=== PATIENT | male | born 1950 | race African-American/Black ===

== ENCOUNTER 2016-11-24 15:36 | Emergency (ER) | payer MEDICARE, MEDICAID ==
[~2016-11-24] VITALS: Ht 190.5 cm; Wt 124.7 kg
[~2016-11-24 15:36] MED LIST: ACETAMINOPHEN-1 EAC2 ORAL; ADULT WAL-100 MG/5 M ORAL; ALBUTEROL SULF8.5 GM INH; AMOXICILLIN500 MG ORAL; AZITHROMYCIN250 MG ORAL; COLACE100 MG ORAL; COSOPT1 DRO2 BOTH EYES; FLOMAX0.4 MG ORAL; FUROSEMIDE40 MG ORAL; HYDROCODON-ACE1 EA17 PO; METHADONE HCL10 MG PO; NKM; NORCO 5-325 TA1 EACH ORAL; NORVASC10 MG ORAL; POTASSIUM 25 M25 ME1 PO; SOMA350 MG PO; UNOBMED; ZITHROMAX250 MG ORAL
[2016-11-24] MEDS ORDERED: Famotidine 20 MG/ 2ML VIAL IVP ONE (16:00)
[2016-11-24 16:15] VITALS: BP 143/84
[2016-11-24] MEDS ORDERED: Dicyclomine HCl 10mg/5ml oral soln ORAL ONE (16:45)
[2016-11-24] MEDS ORDERED: Mylanta II UD 30ml ORAL ONE (16:45)
[2016-11-24] MEDS ORDERED: Lidocaine 2% Visc 15ml soln ORAL ONE (16:45)
[2016-11-24 16:49] LABS: MEAN CORPUSCULAR HEMOGLOBIN 30.7 PG (27.0-31.0); MEAN CORPUSCULAR HGB CONC 34.1 G/DL (32.0-36.0); MEAN CORPUSCULAR VOLUME 90 FL (80-99); MEAN PLATELET VOLUME 6.6 FL (6.5-10.1); PLATELET COUNT 169 K/UL (150-450); RED BLOOD COUNT 4.94 M/UL (4.70-6.10); RED CELL DISTRIBUTION WIDTH 11.5 % (11.6-14.8); WHITE BLOOD COUNT 10.8 K/UL (4.8-10.8)
[2016-11-24 17:00] VITALS: BP 148/80
[2016-11-24 17:00] LABS: ALANINE AMINOTRANSFERASE 21 U/L (3-41); ANION GAP 16 (5-15); ASPARTATE AMINO TRANSFERASE 28 U/L (5-40); CALCIUM 9.6 mg/dL (8.6-10.2); CARBON DIOXIDE 28 mEQ/L (20-30); CHLORIDE 97 mEQ/L (98-107); GLOMERULAR FILTRATION RATE > 60 mL/min (>60); HEMOLYSIS 4; LIPASE 20 U/L (< 60); POTASSIUM 3.7 mEQ/L (3.4-4.9); SODIUM 141 mEQ/L (135-145); TOTAL PROTEIN 7.7 g/dL (6.6-8.7); TROPONIN I < 0.30 ng/mL (<=0.30)
[2016-11-24 17:11] LABS: CKMB < 1.5 ng/mL (< 6.7)
[2016-11-24] MEDS ORDERED: PEPCID40 MG PO (17:12)
[2016-11-24] MEDS ORDERED: ZOFRAN4 M3 ORAL (17:12)
[2016-11-24 17:25] VITALS: BP 148/80
[2016-11-24 19:48] LABS: BAND NEUTROPHILS % (MANUAL) 4 % (0-8); BASOPHILS % (MANUAL) 0 % (0-2); EOSINOPHILS % (MANUAL) 2 % (0-3); LYMPHOCYTES % (MANUAL) 7 % (20-45); NEUTROPHILS % (MANUAL) 85 % (45-75); PLATELET ESTIMATE ADEQUATE; PLATELET MORPHOLOGY NORMAL; TOTAL CELLS COUNTED 100
--- NOTE | 2016-11-24 21:26 | Emergency Room Report ---
History of Present Illness General Chief Complaint: Chest Pain Source: Patient (ELY LUIS) Present Illness HPI The patient is a 66-year-old male with history of hypertension presenting for abdominal pain, nausea, vomiting, and diarrhea. The patient states that he works in a small office where multiple coworkers have had similar symptoms within the past week. The patient states that he developed all these symptoms this morning. Pain is described as a 7/10 sharp sensation to the mid upper abdomen and radiates to the mid chest. No known provoking relieving factors. Patient denies any other symptoms including Fever, chills, CP, SOB, palpitations , diaphoresis, numbness/tingling (ELY LUIS) Allergies: Coded Allergies: IBUPROFEN (Verified Allergy, Mild, Hives, 02/20/13) KETOROLAC TROMETHAMINE (Verified Allergy, Mild, 02/20/13) TETRACYCLINE (Verified Allergy, 02/20/13) TETRACYCLINES (Unverified Allergy, 09/05/13) Patient History Past Medical History: see triage record Pertinent Family History: none Reviewed Nursing Documentation: PMH: Agreed, PSxH: Agreed (ELY LUIS) Nursing Documentation-PMH Past Medical History: No History, Except For Hx Hypertension: Yes Hx Cancer: No Hx Gastrointestinal Problems: Yes Hx Neurological Problems: No (ELY LUIS) Review of Systems All Other Systems: negative except mentioned in HPI (ELY LUIS) Physical Exam Vital Signs Date Time Temp Pulse Resp B/P Pulse Ox O2 Delivery O2 Flow Rate FiO2 11/24/16 15:53 98.2 75 19 143/84 97 Room Air Sp02 EP Interpretation: reviewed, normal General Appearance: no apparent distress, alert, GCS 15, non-toxic Head: normocephalic, atraumatic Eyes: bilateral eye PERRL, bilateral eye normal inspection ENT: hearing grossly normal, normal pharynx, no angioedema, normal voice Respiratory: chest non-tender, lungs clear, normal breath sounds, no wheezing, speaking full sentences Cardiovascular #1: regular rate, rhythm, no edema, no murmur Gastrointestinal: normal bowel sounds, soft, no mass, non-distended, no guarding, no rebound, tenderness - epigastric Genitourinary: normal inspection, no CVA tenderness Musculoskeletal: back normal, gait/station normal, normal range of motion, non- tender Neurologic: alert, oriented x3, responsive, motor strength/tone normal, sensory intact, speech normal Psychiatric: judgement/insight normal, memory normal, mood/affect normal, no suicidal/homicidal ideation Skin: normal color, no rash, warm/dry, well hydrated Lymphatic: no adenopathy (ELY LUIS) Medical Decision Making PA Attestation Dr. White is my supervising physician. Patient management was discussed with my supervising physician (ELY LUIS) Diagnostic Impression: Primary Impression: Gastroenteritis ER Course The patient is a 66-year-old male with history of hypertension presenting for abdominal pain, nausea, vomiting, and diarrhea. Differential diagnoses considered include but not limited to gastroenteritis, pancreatitis, appendicitis, AAA, ACS, GERD PE: Afebrile. Apparent distress RRR. No MRG. Chest non tender. Lungs CTA bilat Abdomen is soft. Normal bowel sounds. No guarding. No masses. There is tenderness to palpation of the epigastric region only All labs are unremarkable including CBC, CMP, cardiac markers The patient is given IV fluids, Zofran, and GI cocktail and is feeling much better. The patient to be discharged home with a prescription for pepcid and zofran and will FU with PMD ER precautions given Laboratory Tests Test 11/24/16 16:40 White Blood Count 10.8 K/UL (4.8-10.8) Red Blood Count 4.94 M/UL (4.70-6.10) Hemoglobin 15.2 G/DL (14.2-18.0) Hematocrit 44.5 % (42.0-52.0) Mean Corpuscular Volume 90 FL (80-99) Mean Corpuscular Hemoglobin 30.7 PG (27.0-31.0) Mean Corpuscular Hemoglobin Concent 34.1 G/DL (32.0-36.0) Red Cell Distribution Width 11.5 % (11.6-14.8) L Platelet Count 169 K/UL (150-450) Mean Platelet Volume 6.6 FL (6.5-10.1) Neutrophils (%) (Auto) % (45.0-75.0) Lymphocytes (%) (Auto) % (20.0-45.0) Monocytes (%) (Auto) % (1.0-10.0) Eosinophils (%) (Auto) % (0.0-3.0) Basophils (%) (Auto) % (0.0-2.0) Differential Total Cells Counted 100 Neutrophils % (Manual) 85 % (45-75) H Lymphocytes % (Manual) 7 % (20-45) L Monocytes % (Manual) 2 % (1-10) Eosinophils % (Manual) 2 % (0-3) Basophils % (Manual) 0 % (0-2) Band Neutrophils 4 % (0-8) Platelet Estimate Adequate Platelet Morphology Normal Red Blood Cell Morphology Normal Sodium Level 141 mEQ/L (135-145) Potassium Level 3.7 mEQ/L (3.4-4.9) Chloride Level 97 mEQ/L (98-107) L Carbon Dioxide Level 28 mEQ/L (20-30) Anion Gap 16 (5-15) H Blood Urea Nitrogen 16 mg/dL (7-23) Creatinine 1.0 mg/dL (0.7-1.2) Estimate Glomerular Filtration Rate > 60 mL/min (>60) Glucose Level 96 mg/dL (74-106) Calcium Level 9.6 mg/dL (8.6-10.2) Total Bilirubin 0.9 mg/dL (0.0-1.2) Aspartate Amino Transferase (AST) 28 U/L (5-40) Alanine Aminotransferase (ALT) 21 U/L (3-41) Alkaline Phosphatase 95 U/L (40-129) Total Creatine Kinase 74 U/L (38-174) Creatine Kinase MB < 1.5 ng/mL (< 6.7) Creatine Kinase MB Relative Index Troponin I < 0.30 ng/mL (<=0.30) Total Protein 7.7 g/dL (6.6-8.7) Albumin 4.0 g/dL (3.5-5.2) Globulin 3.7 g/dL Albumin/Globulin Ratio 1.0 (1.0-2.7) Lipase 20 U/L (< 60) Lab Results Impression all unremarkable (ELY LUIS) ER Course I evaluated this patient in the ED at [facility] with my advanced practice provider (Physician [employer]) colleague, who practices under my general supervision. My impressions concur with the advanced practice provider in regards to their obtained history of present illness, physical exam, general management, diagnosis, and disposition. In particular, I agree with PA-obtained interpretation of imaging, rhythm strip. For the evening and overnight shifts, we do not have the benefit of an in-house Radiologist to review xrays so our interpretation may be limited. Patients are to be discharged only with normal vital signs (or if we discussed a particular exception), a plan for follow-up care, and understand to return to the ED for worsening symptoms. Please see midlevel healthcare providers note for further details. (CHARLI WHITE M.D.) EKG Diagnostic Results Rate: normal - 65 Rhythm: NSR ST Segments: no acute changes ASA given to the pt in ED: No PA Scribe Text EKG was reviewed and read with my supervising physician. No acute ST segment changes are seen. Normal rate and rhythm. No acute changes. (ELY LUIS.Micki) Last Vital Signs Date Time Temp Pulse Resp B/P Pulse Ox O2 Delivery O2 Flow Rate FiO2 11/24/16 17:25 98.2 69 17 148/80 98 Room Air Status: improved (ELY LUIS P.A.) Disposition: HOME, SELF-CARE Condition: Improved Scripts Famotidine (PEPCID) 40 Mg Tablet 40 MG PO DAILY, #7 TAB 0 Refills Prov: ELY LUSI P.A. 11/24/16 Ondansetron* (ZOFRAN*) 4 Mg Tablet 4 MG ORAL Q6H Y for Nausea & Vomiting, #15 TAB Prov: ELY LIUS P.A. 11/24/16 Patient Instructions: Viral Gastroenteritis, Adult Additional Instructions: I discussed my findings with the patient. All questions and concerns have been answered. Treatment and medication compliance have been addressed. I advised the patient that they need to follow up with PMD in 3-5 days. Return to ED if symptoms worsen, new symptoms arise, or if needed for any reason. Patient verbalized understanding of discharge instructions. ELY LUIS Nov 24, 2016 21:26 CHARLI WHITE M.D. Nov 26, 2016 20:57
--- NOTE | 2016-11-25 12:00 | Diagnostic Imaging Report ---
Indications: Chest pain Technique: Portable AP chest Findings: Comparison: 08/03/16 Cardiac silhouette remains enlarged. Central pulmonary arteries remain prominent with mild perihilar vascular congestion, unchanged. Lungs and pleura remain clear. Mild elongation aortic arch unchanged. IMPRESSION: Stable versus recurrent central pulmonary vascular congestion may represent early congestive heart failure. Correlate clinically.
--- NOTE | 2016-11-27 15:57 | Cardiology Report ---
APPROVED REPORT EKG Measurement Heart [id number] Sinus rhythm with premature atrial complexes Nonspecific T wave abnormality Abnormal ECG
== END 2016-11-24 17:26 | disposition home or self-care (01) ==
LOC: EMR 16:23
DX: K52.9 Noninfective gastroenteritis and colitis, unspecified (principal); I10 Essential (primary) hypertension; Z88.6 Allergy status to analgesic agent; Z88.8 Allergy status to other drugs, medicaments and biological substances
CPT/HCPCS: 36415; 71010; 80053; 82550; 82553; 83690; 84484; 85007; 85025; 93005; 99284

== ENCOUNTER 2017-09-14 11:18 | Emergency (ER) | payer MEDICARE, MEDICAID ==
[~2017-09-14] VITALS: Ht 190.5 cm; Wt 117.9 kg
[~2017-09-14 11:18] MED LIST changes: +PEPCID40 MG PO; +ZOFRAN4 M3 ORAL
[2017-09-14] MEDS ORDERED: METHADONE HCL10 MG PO (11:34)
[2017-09-14] MEDS ORDERED: AMLODIPINE BESYL5 MG ORAL (11:34)
[2017-09-14 11:40] VITALS: BP 176/92
[2017-09-14] MEDS ORDERED: DIOVAN80 MG ORAL (11:46)
--- NOTE | 2017-09-14 12:23 | Emergency Room Report ---
History of Present Illness General Chief Complaint: Upper Respiratory Illness Source: Patient Present Illness HPI 67-year-old male presents to the emergency department complaining of 6/10 in severity anterior right thigh pain progressive times one week status post skin popping heroin last month. Patient also reports non-productive cough, intermittent wheezing times one week as well. Describes dry persistent cough that comes and goes regularly. No swelling of the lower extremities. Denies rashes. Denies high fevers, lethargy, neck stiffness, irritability, photophobia dehydration, N/V/D. Denies Cp, Palpitations, LOC, AMS, seizures, paresthesias, or changes in Hearing or vision, no Sudden severe ORTEGA. She reports past medical history significant only for hypertension, and opioid dependency Allergies: Coded Allergies: IBUPROFEN (Verified Allergy, Mild, Hives, 02/20/13) KETOROLAC TROMETHAMINE (Verified Allergy, Mild, 02/20/13) TETRACYCLINE (Verified Allergy, 02/20/13) TETRACYCLINES (Unverified Allergy, 09/05/13) Patient History Past Medical History: see triage record Past Surgical History: none Pertinent Family History: none Immunizations: UTD Reviewed Nursing Documentation: PMH: Agreed, PSxH: Agreed Nursing Documentation-PMH Hx Hypertension: Yes Hx Cancer: No Hx Gastrointestinal Problems: Yes Hx Neurological Problems: No Review of Systems All Other Systems: negative except mentioned in HPI Physical Exam Vital Signs Date Time Temp Pulse Resp B/P (MAP) Pulse Ox O2 Delivery O2 Flow Rate FiO2 09/14/17 11:21 98.2 56 18 176/92 98 Room Air Sp02 EP Interpretation: reviewed, normal General Appearance: no apparent distress, alert, GCS 15, non-toxic Head: normocephalic, atraumatic Eyes: bilateral eye normal inspection, bilateral eye PERRL ENT: hearing grossly normal, normal voice Neck: full range of motion Respiratory: chest non-tender, lungs clear, normal breath sounds, no rhonchi, no respiratory distress, no accessory muscle use, speaking full sentences, wheezing - scant expiratory wheezes in mainly upper lobes. Cardiovascular #1: regular rate, rhythm, no edema, normal capillary refill Gastrointestinal: non tender, soft Rectal: deferred Genitourinary: normal inspection Musculoskeletal: back normal, gait/station normal, normal range of motion, non- tender Neurologic: alert, oriented x3, responsive, motor strength/tone normal, sensory intact, speech normal, grossly normal Psychiatric: judgement/insight normal Skin: warm/dry, well hydrated, other - 1.5 cm superficial abscess, indurated to the right anterior thigh, no surrounding erythema or obvious cellulitis. multiple scars from skin popping in bilateral ant. thighs. Lymphatic: no adenopathy Procedures Incision and Drainage Incision and Drainage : Consent: Verbal Site: right anterior thigh Blade Size: 11 I & D Procedure: betadine prep Wound Location: lower extremity - right anterior thigh Wound's Depth, Shape: superficial Wound Length (cm): 1 Wound Explored: contaminated - pus and blood expressed. Irrigated w/ Saline (ccs): 30 Anesthesia: Lidocaine w/ Epi Volume Anesthetic (ccs): 1 Splint Applied?: No Sling Applied?: No Patient Tolerated: Well Complications: None Medical Decision Making PA Attestation Dr. Marsh is my supervising Physician whom patient management has been discussed with. Diagnostic Impression: Primary Impression: Abscess Additional Impressions: Cough in adult bronchitis ER Course 67-year-old male presents to the emergency department complaining of 6/10 in severity anterior right thigh pain progressive times one week status post skin popping heroin and last month. Patient also reports nonproductive cough, intermittent wheezing times one week as well. Describes dry persistent cough that comes and goes regularly. No swelling of the lower extremities. Denies rashes. Denies high fevers, lethargy, neck stiffness, irritability, photophobia dehydration, N/V/D. Denies Cp, Palpitations, LOC, AMS, seizures, paresthesias, or changes in Hearing or vision, no Sudden severe ORTEGA. She reports past medical history significant only for hypertension, and opioid dependency Ddx considered but are not limited to cellulitis, abscess, cystic acne, necrotizing fasciitis, insect bite, URI, pneumonia, bronchitis, endocarditis to name a few. Vital signs: are WNL, pt. is afebrile H&PE are most consistent with Indurated abscess of the right anterior thigh in addition to mild bronchitis. ORDERS: none required at this time, the diagnosis is clinical ED INTERVENTIONS: -I & D. - Tetanus DISCHARGE: At this time pt. is stable for d/c to home. Will provide printed patient care instructions, and any necessary prescriptions. Care plan and follow up instructions have been discussed with the patient prior to discharge. Last Vital Signs Date Time Temp Pulse Resp B/P (MAP) Pulse Ox O2 Delivery O2 Flow Rate FiO2 09/14/17 11:40 98.2 18 176/92 98 Room Air 09/14/17 11:40 56 Disposition: HOME, SELF-CARE Condition: Stable Referrals: NON PHYSICIAN (PCP) Patient Instructions: Abscess, Upper Respiratory Infection, Adult Additional Instructions: Take medications as directed. Follow up with a Primary Care Provider in 3-5 days, even if your symptoms have resolved. --Please review list of primary care clinics, if you do not already have a primary care provider Return sooner to ED if new symptoms occur, or current symptoms become worse. - Please note that this Emergency Department Report was dictated using Pixelpip[employer] cast supervisor technology software, occasionally this can lead to erroneous entry secondary to interpretation by the dictation equipment. Tameka Otto Sep 14, 2017 12:23
[2017-09-14] MEDS ORDERED: Lidocaine 1% MPF 10mg/ml 5ml IM ONE (12:30)
[2017-09-14] MEDS ORDERED: Tetanus/Diptheria/Pertussis Vaccine 0.5ml Syr IM ONE (12:30)
[2017-09-14] MEDS ORDERED: Bacitracin Oint UD TOPIC ONE (13:00)
[2017-09-14] MEDS ORDERED: TYLENOL EXTRA500 MG ORAL (13:05)
[2017-09-14] MEDS ORDERED: CLINDAMYCIN HC300 MG ORAL (13:05)
[2017-09-14] MEDS ORDERED: ALBUTEROL SULF8.5 GM INH (13:05)
[2017-09-14] MEDS ORDERED: PROMETHAZINE-D118 ML ORAL (13:05)
[2017-09-14] MEDS ORDERED: CEPHALEXIN500 MG ORAL (13:05)
[2017-09-14 13:13] VITALS: BP 176/92
== END 2017-09-14 13:13 | disposition home or self-care (01) ==
LOC: EMR 12:05
DX: L02.415 Cutaneous abscess of right lower limb (principal); J40 Bronchitis, not specified as acute or chronic; I10 Essential (primary) hypertension; Z88.6 Allergy status to analgesic agent; Z88.1 Allergy status to other antibiotic agents; Z23 Encounter for immunization
CPT/HCPCS: 10060; 90471; 90715; 99284

== ENCOUNTER 2017-12-06 06:13 | Emergency (ER) | payer MEDICARE, MEDICAID ==
[~2017-12-06] VITALS: Ht 190.5 cm; Wt 117.9 kg
[~2017-12-06 06:13] MED LIST changes: +AMLODIPINE BESYL5 MG ORAL; +CEPHALEXIN500 MG ORAL; +CLINDAMYCIN HC300 MG ORAL; +DIOVAN80 MG ORAL; +PROMETHAZINE-D118 ML ORAL; +TYLENOL EXTRA500 MG ORAL
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
[2017-12-06 07:39] LABS: BASOPHILS % (AUTO) 0.8 % (0.0-2.0); EOSINOPHILS % (AUTO) 3.1 % (0.0-3.0); HEMATOCRIT 42.3 % (42.0-52.0); HEMOGLOBIN 14.8 G/DL (14.2-18.0); LYMPHOCYTES % (AUTO) 15.1 % (20.0-45.0); MEAN CORPUSCULAR VOLUME 88 FL (80-99); MONOCYTES % (AUTO) 9.9 % (1.0-10.0); NEUTROPHILS % (AUTO) 71.1 % (45.0-75.0); PLATELET COUNT 191 K/UL (150-450); RED BLOOD COUNT 4.78 M/UL (4.70-6.10); RED CELL DISTRIBUTION WIDTH 11.6 % (11.6-14.8); WHITE BLOOD COUNT 6.5 K/UL (4.8-10.8)
[2017-12-06 07:44] LABS: ANION GAP 5 mmol/L (5-15); BLOOD UREA NITROGEN 11 mg/dL (7-18); CALCIUM 8.8 MG/DL (8.5-10.1); CARBON DIOXIDE 27 MMOL/L (21-32); CHLORIDE 101 MMOL/L (98-107); CREATININE 1.2 MG/DL (0.55-1.30); POTASSIUM 3.6 MMOL/L (3.5-5.1); SODIUM 133 MMOL/L (136-145)
[2017-12-06 07:49] LABS: ALANINE AMINOTRANSFERASE 22 U/L (12-78); ALBUMIN 3.2 G/DL (3.4-5.0); ALBUMIN/GLOBULIN RATIO 0.7 (1.0-2.7); ALKALINE PHOSPHATASE 93 U/L (46-116); ASPARTATE AMINO TRANSFERASE 29 U/L (15-37); BILIRUBIN,TOTAL 0.6 MG/DL (0.2-1.0)
[2017-12-06 08:24] VITALS: BP 109/59
--- NOTE | 2017-12-06 08:45 | Diagnostic Imaging Report ---
Indication: Head trauma Technique: Continuous helical CT scanning of the head was performed utilizing automated exposure control without intravenous contrast material. Axial and coronal reconstructions were obtained. Comparison: None CT dose: Total DLP 1583 mGycm; CTDI vol 70.4 mGy Findings: There is no acute intracranial hemorrhage, mass effect or cortical edema. The ventricles, cisterns and sulci are within normal limits. The posterior fossa and fourth ventricle are unremarkable. Sellar and suprasellar regions are grossly unremarkable. Visualized mastoid air cells and paranasal sinuses are unremarkable. No focal lesions of the bony calvarium or soft tissues of the scalp are seen. Impression: No evidence of acute intracranial hemorrhage, mass effect or cortical edema. MRI may be obtained for more sensitive evaluation as clinically indicated. The CT scanner at [facility] is accredited by the [employer] and the scans are performed using protocols designed to limit radiation exposure to as low as reasonably achievable to attain images of sufficient resolution adequate for diagnostic evaluation.
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
[2017-12-06] MEDS ORDERED: CYCLOBENZAPRINE10 MG ORAL (08:53)
[2017-12-06] MEDS ORDERED: ACETAMINOPHEN-1 EAC1 ORAL (08:53)
[2017-12-06 09:02] VITALS: BP 109/59
== END 2017-12-06 09:04 | disposition home or self-care (01) ==
LOC: EMR 06:42
DX: S16.1XXA Strain of muscle, fascia and tendon at neck level, initial encounter (principal); S09.8XXA Other specified injuries of head, initial encounter; S00.83XA Contusion of other part of head, initial encounter; W19.XXXA Unspecified fall, initial encounter; Y92.89 Other specified places as the place of occurrence of the external cause; I10 Essential (primary) hypertension; K21.9 Gastro-esophageal reflux disease without esophagitis; Z88.1 Allergy status to other antibiotic agents; Z88.6 Allergy status to analgesic agent; Z88.8 Allergy status to other drugs, medicaments and biological substances
CPT/HCPCS: 36415; 70450; 72125; 80053; 85025; 85610; 85730; 99284

== ENCOUNTER 2018-01-25 13:23 | Emergency (ER) | payer MEDICARE, MEDICAID ==
[~2018-01-25] VITALS: Ht 190.5 cm; Wt 120.2 kg
[~2018-01-25 13:23] MED LIST changes: +ACETAMINOPHEN-1 EAC1 ORAL; +CYCLOBENZAPRINE10 MG ORAL
[2018-01-25 13:35] VITALS: BP 173/80
[2018-01-25 14:23] LABS: BASOPHILS % (AUTO) 0.9 % (0.0-2.0); EOSINOPHILS % (AUTO) 3.5 % (0.0-3.0); HEMATOCRIT 42.1 % (42.0-52.0); HEMOGLOBIN 14.4 G/DL (14.2-18.0); LYMPHOCYTES % (AUTO) 24.2 % (20.0-45.0); MEAN CORPUSCULAR VOLUME 87 FL (80-99); MONOCYTES % (AUTO) 9.3 % (1.0-10.0); NEUTROPHILS % (AUTO) 62.2 % (45.0-75.0); PLATELET COUNT 195 K/UL (150-450); RED BLOOD COUNT 4.84 M/UL (4.70-6.10); RED CELL DISTRIBUTION WIDTH 10.8 % (11.6-14.8); WHITE BLOOD COUNT 7.9 K/UL (4.8-10.8)
[2018-01-25 14:38] LABS: ANION GAP 8 mmol/L (5-15); BLOOD UREA NITROGEN 15 mg/dL (7-18); CALCIUM 9.2 MG/DL (8.5-10.1); CARBON DIOXIDE 28 MMOL/L (21-32); CHLORIDE 101 MMOL/L (98-107); CREATININE 0.9 MG/DL (0.55-1.30); SODIUM 137 MMOL/L (136-145)
[2018-01-25 14:51] LABS: ALANINE AMINOTRANSFERASE 33 U/L (12-78); ALBUMIN 3.4 G/DL (3.4-5.0); ALBUMIN/GLOBULIN RATIO 0.7 (1.0-2.7); ALKALINE PHOSPHATASE 135 U/L (46-116); ASPARTATE AMINO TRANSFERASE 42 U/L (15-37); BILIRUBIN,TOTAL 0.5 MG/DL (0.2-1.0); CKMB 0.6 NG/ML (0.0-3.6); CREATINE KINASE 117 U/L (26-308)
[2018-01-25] MEDS ORDERED: LIDOCAINE700 M1 TP (15:14)
[2018-01-25 15:38] VITALS: BP 155/71
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
--- NOTE | 2018-01-26 11:26 | Diagnostic Imaging Report ---
Indication: Shortness of breath Technique: One view of the chest Comparison: 11/24/2016 Findings: Patient is rotated to the right. Bands of atelectasis or scarring are seen at the left lung base. Lungs and pleural spaces are otherwise clear. Heart size is upper limits normal. The aorta is tortuous and slightly ectatic Impression: Left basilar atelectasis or scarring. No acute process otherwise
--- NOTE | 2018-01-26 13:34 | Cardiology Report ---
APPROVED REPORT EKG Measurement Heart [id number] Sinus bradycardia with sinus arrhythmia Otherwise normal ECG
== END 2018-01-25 15:38 | disposition home or self-care (01) ==
LOC: EMR 14:22
DX: R07.9 Chest pain, unspecified (principal); I10 Essential (primary) hypertension; Z88.6 Allergy status to analgesic agent; Z88.1 Allergy status to other antibiotic agents
CPT/HCPCS: 36415; 71045; 80053; 80307; 82550; 82553; 83880; 84484; 85025; 85610; 85730; 93005; 99283

== ENCOUNTER 2018-10-04 19:22 | Emergency (ER) | payer MEDICARE, MEDICAID ==
[~2018-10-04] VITALS: Ht 190.5 cm; Wt 124.7 kg
[~2018-10-04 19:22] MED LIST changes: +LIDOCAINE700 M1 TP
[2018-10-04 19:28] VITALS: BP 157/68
--- NOTE | 2018-10-04 19:30 | NUR ---
ED Nurse Note: Patient presents with complaints of sudden onset of chest pain with indigestion after. Patient reports current bruning sensation at chest 7/10.
[2018-10-04] MEDS ORDERED: OMEPRAZOLE20 M2 ORAL (19:37)
[2018-10-04] MEDS ORDERED: HYDROCHLOROTHIA25 MG ORAL (19:38)
[2018-10-04] MEDS ORDERED: GEMFIBROZIL600 MG ORAL (19:39)
[2018-10-04] MEDS ORDERED: Nitroglycerin 2% oint pkt TOPIC ONE (20:00)
[2018-10-04] MEDS ORDERED: Aspirin Baby 81mg ORAL ONE (20:00)
[2018-10-04] MEDS ORDERED: Mylanta II UD 30ml ORAL ONE (20:00)
--- NOTE | 2018-10-04 20:02 | Emergency Room Report ---
History of Present Illness General Chief Complaint: Chest Pain Source: Patient Present Illness HPI Patient presents with chest pain. Started between his shoulder blades of while eating. And then he had it substernally. States he has chest pressure. It was severe and he was anxious with it. He denies diaphoresis. He felt like he had to burp however burping didn't relieve the the pressure in his chest. Was 8 or 9/10 at that time. At this time he feels much better. His reports FOSTER walking across the street which has worsened. Patient denies this. No smoking, family history, diabetes On meds for HTN cholesterol No fevers, chills, URI, cough, rashes. Osteoarthritis of back and uses cane. 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 Takes omeprazole. 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 Reviewed Nursing Documentation: PMH: Agreed; PSxH: Agreed Nursing Documentation-PMH Hx Hypertension: Yes Hx Cancer: No Hx Gastrointestinal Problems: Yes Hx Neurological Problems: No Review of Systems All Other Systems: negative except mentioned in HPI Physical Exam Vital Signs Date Time Temp Pulse Resp B/P (MAP) Pulse Ox O2 Delivery O2 Flow Rate FiO2 10/04/18 19:24 98.1 53 14 160/84 99 Room Air Sp02 EP Interpretation: reviewed, normal General Appearance: well appearing, no apparent distress, GCS 15 Head: normocephalic Eyes: bilateral eye normal inspection, bilateral eye PERRL, bilateral eye EOMI ENT: moist mucus membranes Neck: supple Respiratory: chest non-tender, lungs clear, normal breath sounds Cardiovascular #1: regular rate, rhythm, no edema Cardiovascular #2: 2+ radial (R) Gastrointestinal: normal inspection, normal bowel sounds, non tender, no mass, non-distended, overweight Musculoskeletal: gait/station normal, normal range of motion, tender - lumbar area (states chronic) Neurologic: alert, oriented x3, grossly normal Psychiatric: mood/affect normal Skin: normal inspection, warm/dry Medical Decision Making Diagnostic Impression: Primary Impression: Chest pain Qualified Codes: R07.9 - Chest pain, unspecified ER Course Patient presents with chest and back pain. Differential included includes acute myocardial infarction, acute coronary syndrome, aortic dissection, esophageal spasm, GERD amongst others. Patient will be evaluated with EKG, chest x-ray and labs. He will be treated with aspirin, Nitrol paste, Pepcid and Mylanta. EKG without injury. CXR - slightly tortuous aorta, not widened. Labs unremarkable. Initial troponin negative. Discussed findings with patient and need for further observation. Patient understands risk of from cardiac disease, but insists on leaving against medical advice. Patient pain free. (Late return of urine with some pyuria. Will await culture as no urinary symptoms.) Laboratory Tests Test 10/04/18 20:35 10/04/18 21:36 White Blood Count 7.6 K/UL (4.8-10.8) Red Blood Count 4.78 M/UL (4.70-6.10) Hemoglobin 13.7 G/DL (14.2-18.0) L Hematocrit 41.6 % (42.0-52.0) L Mean Corpuscular Volume 87 FL (80-99) Mean Corpuscular Hemoglobin 28.7 PG (27.0-31.0) Mean Corpuscular Hemoglobin Concent 33.0 G/DL (32.0-36.0) Red Cell Distribution Width 11.1 % (11.6-14.8) L Platelet Count 194 K/UL (150-450) Mean Platelet Volume 6.7 FL (6.5-10.1) Neutrophils (%) (Auto) 65.3 % (45.0-75.0) Lymphocytes (%) (Auto) 22.8 % (20.0-45.0) Monocytes (%) (Auto) 6.8 % (1.0-10.0) Eosinophils (%) (Auto) 4.1 % (0.0-3.0) H Basophils (%) (Auto) 1.1 % (0.0-2.0) Prothrombin Time 10.7 SEC (9.30-11.50) Prothrombin Time INR 1.0 (0.9-1.1) PTT 28 SEC (23-33) Sodium Level 139 MMOL/L (136-145) Potassium Level 3.9 MMOL/L (3.5-5.1) Chloride Level 102 MMOL/L (98-107) Carbon Dioxide Level 30 MMOL/L (21-32) Anion Gap 7 mmol/L (5-15) Blood Urea Nitrogen 10 mg/dL (7-18) Creatinine 1.2 MG/DL (0.55-1.30) Estimate Glomerular Filtration Rate > 60 mL/min (>60) Glucose Level 101 MG/DL (74-106) Calcium Level 9.2 MG/DL (8.5-10.1) Total Bilirubin 0.7 MG/DL (0.2-1.0) Aspartate Amino Transferase (AST) 36 U/L (15-37) Alanine Aminotransferase (ALT) 30 U/L (12-78) Alkaline Phosphatase 113 U/L (46-116) Total Creatine Kinase 75 U/L (26-308) Troponin I 0.000 ng/mL (0.000-0.056) Pro-B-Type Natriuretic Peptide 167 pg/mL (0-125) H Total Protein 8.2 G/DL (6.4-8.2) Albumin 3.4 G/DL (3.4-5.0) Globulin 4.8 g/dL Albumin/Globulin Ratio 0.7 (1.0-2.7) L Urine Color Pending Urine Appearance Pending Urine pH Pending Urine Specific Mongo Pending Urine Protein Pending Urine Glucose (UA) Pending Urine Ketones Pending Urine Blood Pending Urine Nitrite Pending Urine Bilirubin Pending Urine Urobilinogen Pending Urine Leukocyte Esterase Pending EKG Diagnostic Results Rate: bradycardiac Rhythm: NSR ST Segments: no acute changes Rhythm Strip Diag. Results EP Interpretation: yes Rhythm: no PVC's, no ectopy, other - Bradycardia Chest X-Ray Diagnostic Results Chest X-Ray Diagnostic Results : Chest X-Ray Ordered: Yes # of Views/Limited/Complete: 1 View Indication: Chest Pain Interpretation: no consolidation, no effusion, no pneumothorax Impression: No acute disease Last Vital Signs Date Time Temp Pulse Resp B/P (MAP) Pulse Ox O2 Delivery O2 Flow Rate FiO2 10/04/18 22:11 98.1 17 157/68 100 Room Air 10/04/18 19:28 53 Status: improved Disposition: AGAINST MEDICAL ADVICE Condition: Unknown Scripts Nitroglycerin (NITROSTAT) 0.4 Mg Tab.subl 0.4 MG SL Q5M X3 DOSES PRN for CHEST PAIN, #25 TAB 0 Refills Prov: Lisandro Marsh MD 10/04/18 Lisandro Marsh MD Oct 04, 2018 20:02
--- NOTE | 2018-10-04 20:31 | NUR ---
ED Nurse Note: Patient tolerated medication well, no s/s of acute distress seen at this. Time patient has at bedside.
[2018-10-04 21:02] LABS: BASOPHILS % (AUTO) 1.1 % (0.0-2.0); EOSINOPHILS % (AUTO) 4.1 % (0.0-3.0); HEMATOCRIT 41.6 % (42.0-52.0); HEMOGLOBIN 13.7 G/DL (14.2-18.0); LYMPHOCYTES % (AUTO) 22.8 % (20.0-45.0); MEAN CORPUSCULAR VOLUME 87 FL (80-99); MONOCYTES % (AUTO) 6.8 % (1.0-10.0); NEUTROPHILS % (AUTO) 65.3 % (45.0-75.0); PLATELET COUNT 194 K/UL (150-450); RED BLOOD COUNT 4.78 M/UL (4.70-6.10); RED CELL DISTRIBUTION WIDTH 11.1 % (11.6-14.8); WHITE BLOOD COUNT 7.6 K/UL (4.8-10.8)
[2018-10-04 21:15] LABS: ANION GAP 7 mmol/L (5-15); BLOOD UREA NITROGEN 10 mg/dL (7-18); CALCIUM 9.2 MG/DL (8.5-10.1); CARBON DIOXIDE 30 MMOL/L (21-32); CHLORIDE 102 MMOL/L (98-107); CREATININE 1.2 MG/DL (0.55-1.30); POTASSIUM 3.9 MMOL/L (3.5-5.1); SODIUM 139 MMOL/L (136-145)
[2018-10-04 21:25] LABS: ALANINE AMINOTRANSFERASE 30 U/L (12-78); ALBUMIN 3.4 G/DL (3.4-5.0); ALBUMIN/GLOBULIN RATIO 0.7 (1.0-2.7); ALKALINE PHOSPHATASE 113 U/L (46-116); ASPARTATE AMINO TRANSFERASE 36 U/L (15-37); BILIRUBIN,TOTAL 0.7 MG/DL (0.2-1.0); CREATINE KINASE 75 U/L (26-308)
--- NOTE | 2018-10-04 21:40 | NUR ---
ED Nurse Note: Patient resting comfortably with at bedside, has no complaints of pain or discomfort at this time.
[2018-10-04 21:55] LABS: APPEARANCE,URINE CLEAR; BILIRUBIN, URINE NEGATIVE (NEGATIVE); COLOR,URINE AMBER; GLUCOSE, URINE (UA) NEGATIVE (NEGATIVE); KETONES,URINE NEGATIVE (NEGATIVE); LEUKOCYTE ESTERASE ,URINE 1+ (NEGATIVE); NITRITE,URINE NEGATIVE (NEGATIVE); PH,URINE 5 (4.5-8.0); PROTEIN,URINE NEGATIVE (NEGATIVE); UROBILINOGEN,URINE 4 MG/DL (0.0-1.0)
[2018-10-04] MEDS ORDERED: NITROSTAT0.4 M1 SL (22:01)
--- NOTE | 2018-10-04 22:08 | NUR ---
ED Nurse Note: Patient discharged AMA. He plan to attend an appointment tomorrow at the [facility]. Patient signed AMA form, is ambulatory with steady gait, verbalizes understading of discharge instructions. ID band removed, IV removed. Patient departed with all his belongings accompanied by his .
[2018-10-04 22:11] VITALS: BP 157/68
--- NOTE | 2018-10-05 14:17 | Diagnostic Imaging Report ---
Indication: Chest pain Comparison: 01/25/2018 A single view chest radiograph was obtained. Findings: Lungs are clear. Heart size is normal. Aorta is mildly ectatic. IMPRESSION: No acute disease
== END 2018-10-04 22:12 | disposition left against medical advice (07) ==
LOC: EMR 19:45
DX: R07.89 Other chest pain (principal); I10 Essential (primary) hypertension; Z88.6 Allergy status to analgesic agent; Z88.1 Allergy status to other antibiotic agents
CPT/HCPCS: 36415; 71045; 80053; 81003; 82550; 83880; 84484; 85025; 85610; 85730; 93005; 96374; 99284; S0028

== ENCOUNTER 2019-12-28 17:44 | Emergency (ER) | payer MEDICARE ==
[~2019-12-28] VITALS: Ht 190.5 cm; Wt 113.4 kg
[~2019-12-28 17:44] MED LIST changes: +GEMFIBROZIL600 MG ORAL; +HYDROCHLOROTHIA25 MG ORAL; +NITROSTAT0.4 M1 SL; +OMEPRAZOLE20 M2 ORAL
[2019-12-28 18:01] VITALS: BP 146/70
[2019-12-28 18:10] VITALS: BP 146/70
--- NOTE | 2019-12-28 18:12 | Emergency Room Report ---
History of Present Illness General Chief Complaint: Back Pain-No Injury Source: Medical Record Present Illness HPI This patient left prior to evaluation by medical provider. I was walking into pt. room as he was leaving. Pt. stated he wants to go because he does not feel comfortable in the current ED environment. encouraged pt. to stay and be evaluated however pt. declined. Allergies: Coded Allergies: IBUPROFEN (Verified Allergy, Mild, Hives, 02/20/13) KETOROLAC TROMETHAMINE (Verified Allergy, Mild, 02/20/13) TETRACYCLINES (Unverified Allergy, Unknown, 01/25/18) COVID-19 Screening Contact w/high risk pt: No Recent Travel to affected area: No Experienced COVID-19 symptoms?: No Nursing Documentation-PM Past Medical History: No History, Except For Hx Hypertension: Yes Hx Pacemaker: No Hx Asthma: No Hx COPD: No Hx Diabetes: No Hx Cancer: No Hx Gastrointestinal Problems: Yes History Of Psychiatric Problem: No Hx Neurological Problems: No Hx Cerebrovascular Accident: No Hx Seizures: No Physical Exam Vital Signs Date Time Temp Pulse Resp B/P (MAP) Pulse Ox O2 Delivery O2 Flow Rate FiO2 12/28/19 17:54 97.9 76 16 146/70 (95) 99 Room Air Medical Decision Making PA Attestation Dr. Herrera Is my supervising Physician whom patient management has been discussed with. Diagnostic Impression: Primary Impression: Patient left without being seen ER Course This patient left prior to evaluation by medical provider. I was walking into pt. room as he was leaving. Pt. stated he wants to go because he does not feel comfortable in the current ED environment. encouraged pt. to stay and be evaluated however pt. declined. Last Vital Signs Date Time Temp Pulse Resp B/P (MAP) Pulse Ox O2 Delivery O2 Flow Rate FiO2 12/28/19 17:54 97.9 76 16 146/70 (95) 99 Room Air Disposition: LEFT W/OUT BEING SEEN Condition: Unknown Referrals: NON PHYSICIAN (PCP) Tameka Otto December 28, 2019 18:12
== END 2019-12-28 18:10 | disposition left against medical advice (07) ==
LOC: EMR 18:04
DX: M54.9 Dorsalgia, unspecified (principal); Z53.21 Procedure and treatment not carried out due to patient leaving prior to being seen by health care provider; I10 Essential (primary) hypertension